=== PATIENT | female | born 1980 | race Caucasian/White ===

== ENCOUNTER 2019-12-06 07:53 | Outpatient (RCR) | payer BC, SELFPAY ==
[2019-12-06 08:00] VITALS: BMI 50.0
== END 2020-03-05 23:59 | disposition home or self-care (01) ==
LOC: ANHDMC 07:53
PROVIDERS: PCP Family Medicine; Visit Provider Obstetrics & Gynecology
DX: O24.410 Gestational diabetes mellitus in pregnancy, diet controlled (principal); Z3A.28 28 weeks gestation of pregnancy; Z71.89 Other specified counseling; Z71.3 Dietary counseling and surveillance
CPT/HCPCS: 97802; G0108

== ENCOUNTER 2019-12-07 09:19 | Outpatient (RCR) | payer BC, SELFPAY ==
[2019-12-08] MEDS: RHO(D) IMMUNE GLOBULIN 300 MCG SYRINGE IM (14:26)
== END 2020-03-06 23:59 | disposition home or self-care (01) ==
LOC: ANHLAB 09:19
PROVIDERS: PCP Family Medicine; Visit Provider Obstetrics & Gynecology
DX: Z29.13 Encounter for prophylactic Rho(D) immune globulin (principal); O36.0990 Maternal care for other rhesus isoimmunization, unspecified trimester, not applicable or unspecified; Z3A.00 Weeks of gestation of pregnancy not specified
CPT/HCPCS: 36415; 90384; 96372; J2790

== ENCOUNTER 2020-02-08 13:25 | Outpatient (RCR) | payer BC, SELFPAY ==
[2019-12-21 10:11] VITALS: BP 149/80
[2019-12-28 09:52] VITALS: BP 114/55; PULSE 68
[2020-01-02 11:25] VITALS: BP 113/79; PULSE 71
[2020-01-11 13:21] VITALS: BP 127/73; PULSE 78
[2020-01-18 14:23] VITALS: BP 136/74; PULSE 77
[2020-01-25 13:48] VITALS: BP 126/65; PULSE 72
[2020-02-01 15:25] VITALS: BP 132/74; PULSE 73
[2020-02-08 13:53] VITALS: BP 141/67; PULSE 79
== END 2020-02-14 09:52 | disposition home or self-care (01) ==
LOC: ANHOBOP 13:25
PROVIDERS: PCP Family Medicine; Visit Provider Obstetrics & Gynecology
DX: O16.3 Unspecified maternal hypertension, third trimester (principal); O24.419 Gestational diabetes mellitus in pregnancy, unspecified control; Z3A.30 30 weeks gestation of pregnancy; Z3A.31 31 weeks gestation of pregnancy; Z3A.32 32 weeks gestation of pregnancy; Z3A.33 33 weeks gestation of pregnancy; Z3A.34 34 weeks gestation of pregnancy; Z3A.35 35 weeks gestation of pregnancy; Z3A.36 36 weeks gestation of pregnancy; Z3A.37 37 weeks gestation of pregnancy
CPT/HCPCS: 59025

== ENCOUNTER 2020-02-11 11:24 | Outpatient (CLI) | payer BC, SELFPAY ==
[2020-02-11 12:27] LABS: Hematocrit 33.7 % (37.0-47.0); Hemoglobin 11.3 g/dL (12.0-15.0); Mean Corpuscular HGB Conc 33.5 g/dl (32-36); Mean Corpuscular Hemoglobin 28.7 pg (26-34); Mean Corpuscular Volume 85.5 fl (80-100); Mean Platelet Volume 10.5 fl (7.4-10.4); Platelet Count Result 223 k/mm3 (150-375); Red Blood Count 3.94 M/mm3 (4.2-5.4); Red Cell Distribution Width 15.6 % (11.5-14.5); White Blood Count 8.4 K/mm3 (4.5-10.0)
[2020-02-13 07:29] LABS: Rapid Plasma Reagin Non-Reactive (NonReactive)
== END 2020-02-11 11:25 | disposition home or self-care (01) ==
PROVIDERS: PCP Family Medicine; Visit Provider Obstetrics & Gynecology
DX: Z01.818 Encounter for other preprocedural examination (principal)
CPT/HCPCS: 36415; 85027; 86592; 86850; 86900; 86901

== ENCOUNTER 2020-02-13 05:20 | Inpatient (IN) | payer BC, SELFPAY ==
--- NOTE | 2020-01-25 12:54 | PC.NURSE ---
PATIENT STATES SHE IS A REPEAT C/S WITH TUBAL LIGATION. PATIENT STATES DR SOFIE SANTIAGO HAS NOT SCHEDULE THE C/S YET. PATIENT INSTRUCTED SHE WILL NEED TO BE IN OB 2 HOURS BEFORE SURGERY AND NOTHING BY MOUTH AT MIDNIGHT THE NIGHT BEFORE SURGERY.PATIENT VERBALIZED HER UNDERSTANDING. PATIENT GIVEN REQUISITION FOR LAB DRAW
--- NOTE | 2020-02-08 13:28 | PM.IMHP ---
H&P: HPI History of Present Illness Chief complaint: PREIN, high blood pressure Narrative: Laurel Hart is a 39 year old female 001 whose last menstrual period was 05/09/2019, EDC is 02/24/2020, confirmed by 6 week ultrasound presents at 38 and half weeks gestation for repeat section. . Her is complicated by chronic hypertension on labetalol 100 mg twice a day. Serial nonstress tests have been good. She also had an abnormal diabetic screen that was followed with serial sugars which have been normal. She is positive for group B strep Review of Systems Review of Systems: All systems reviewed & are unremarkable except as noted in HPI and below PMFSH Family History Family History Father Congestive heart failure Hypertension Mother Liver cirrhosis secondary to HEART Fatty liver Diabetes mellitus Grandparent Abdominal aortic aneurysm Social History Social History Substance use: never Spiritual care concerns: No Meds Home Medications and Allergies Home Medications Medication Instructions Recorded Confirmed Type PNV cmb#95-ferrous fumarate-FA 1 tablet PO DAILY 01/25/20 02/01/20 History [] cholecalciferol (vitamin D3) 125 mcg PO DAILY 01/25/20 02/01/20 History [Vitamin D3] docusate sodium [Colace] 100 mg PO BID 01/25/20 02/01/20 History folic acid 0.4 mg PO DAILY 01/25/20 02/01/20 History labetalol 200 mg PO Q12H 01/25/20 02/01/20 History Allergies Allergy/AdvReac Type Severity Reaction Status Date / Time nifedipine Allergy Mild Hives / Verified 01/25/20 12:33 Red Face nisoldipine Allergy Unknown flushed Verified 01/25/20 12:33 /sweating/burning Exam Const: General: no acute distress Eyes: General: appearance normal, both eyes and all related structures Neck: Neck: supple and no JVD Thyroid: thyroid normal Resp: Effort & Inspection: normal respiratory effort Auscultation: clear to auscultation bilaterally Cardio: Rate: regular rate Rhythm: regular rhythm GI: Inspection: normal to inspection ( obese abdomen) : General: Yes bladder normal to palpation External Female Exam: normal external appearance Speculum Exam - Vagina: normal vaginal discharge and No vaginal bleeding Speculum Exam - Cervix: nontender Bimanual exam- vagina & uterus: bladder normal to palpation and No Cervical tenderness present OB/external & speculum: No vaginal bleeding Skin: General skin exam: no rashes or lesions noted Extrem: General: normal to inspection and no edema Psych: Mental Status: mental status grossly normal Affect: normal affect Assessment and Plan Additional Plan impression: 38 and half weeks / chronic hypertension/ previous section / group B strep positive/ obesity / gestational diabetes controlled Plan: Repeat low-transverse section
[2020-02-13] VITALS (69 sets, daily range): BP systolic 81–152; BP diastolic 38–84; PULSE 58–95; RESP 16–23; TEMP 36.3–37.2; O2SAT 96–100; BMI 51.2
[2020-02-13] MEDS: LACTATED RINGERS 1,000 ML 125 ML IV CONT ×2 (05:52→06:59)
--- NOTE | 2020-02-13 06:22 | LDADM ---
This patient, Laurel Hart, was admitted to Labor/Delivery/Recovery 120 on 02/13/20 at 05:20. Plans for labor, pain management and were discussed with patient. Patient/family oriented to hospital policies and general routines including ID bracelet, bed and alarms, visiting hours, pain management, procedures, bathroom and other care routines, personal items, smoking policy, room service/diet and guest tray routines, security routines, and visiting hours. Patient/Family are encouraged to report perceived risks to care and to ask questions if they do not understand what they are told or what they should do. See OBIX for further documentation.
--- NOTE | 2020-02-13 06:28 | WPDHPUPDATE1 ---
History and Physical Update Update Date/Time: 02/13/20 06:28 History and Physical has been reviewed, including an updated exam of the patient. There are NO changes in the patient's condition. Risks, benefits, and alternatives have been discussed and questions answered. Patient agrees to proceed with procedure.
--- NOTE | 2020-02-13 07:13 | P.PNAN_ITS ---
Anes - Initial Pre Proc Eval Procedure: Operation Date: 02/13/20 07:30 Proposed Procedures p Repeat Section - Checo Armas MD Date/Time: 02/13/20 07:13 Surgeon: Checo Armas MD Pre Op Diagnosis: c/s Patient Data Age: 39 Gender: F Height: 5 ft 3 in Weight: 131.2 kg Last Vital Signs Temp 37.1 C 02/13/20 06:37 Pulse 78 02/13/20 06:12 BP 134/61 02/13/20 06:12 Allergies Allergy/AdvReac Type Severity Reaction Status Date / Time nifedipine Allergy Mild Hives / Verified 01/25/20 12:33 Red Face nisoldipine Allergy Unknown flushed Verified 01/25/20 12:33 /sweating/burning Home Medications Medication Instructions Recorded Confirmed Type PNV cmb#95-ferrous fumarate-FA 1 tablet PO DAILY 01/25/20 02/01/20 History [] cholecalciferol (vitamin D3) 125 mcg PO DAILY 01/25/20 02/01/20 History [Vitamin D3] docusate sodium [Colace] 100 mg PO BID 01/25/20 02/01/20 History folic acid 0.4 mg PO DAILY 01/25/20 02/01/20 History labetalol 200 mg PO Q12H 01/25/20 02/01/20 History hydrocodone-acetaminophen [[place]] 1 tablet PO Q4H PRN #30 tablet 02/13/20 Rx Patient hx anesthesia problems: none Family hx anesthesia problems: none PMFSH Past Medical History Medical History Diabetes Hypertension Family History Family History Father Congestive heart failure Hypertension Mother Liver cirrhosis secondary to HEART Fatty liver Diabetes mellitus Grandparent Abdominal aortic aneurysm Social History Social History Smoking status: Never smoker Second hand tobacco smoke exposure: No Substance use: never Spiritual care concerns: No Anes - Eval Final PreProcedure Day of Procedure 02/13/20 07:13 Patient weight: super morbidly obese Heart: regular rate and rhythm Lungs: clear to auscultation Airway: Mallampati scale class II Neurological: alert and oriented Last oral intake: >/= 8 hours ASA classification: III Emergent: no Anesthetic plan: proceed Anesthesia type and monitoring: regional spinal and standard monitoring Informed Consent: The patient's anesthetic plan and its attendant risks and benefits were discussed with the patient/family/POA. Questions were solicited and answers provided to the satisfaction of the patient/family/POA.
[2020-02-13] MEDS: ceFAZolin 3 GM/D5W 100 ML 100 ML IVPB (07:15)
--- NOTE | 2020-02-13 08:29 | PM.PROC ---
Procedure Note - Detailed Date of procedure: 02/13/20 Pre-op diagnosis: c/s Surgeon: Checo Armas MD Postop diagnosis: Term /previous section Procedure: Repeat low-transverse section EBL: 465cc Anesthesia: Epidural Findings: Male infant 6 lb 6 oz Apgars 8 and 9 at 1 and 5 minutes respectively. The baby was lying transverse and high. There were multiple adhesions Complications: None Description of procedure: The patient was prepped and draped in the normal sterile fashion placed in supine position. Under excellent epidural anesthesia the abdomen was entered in a Pfannenstiel fashion progress through layers to the fascia. Fascia was incised in an upward outward fashion bilaterally. The underlying muscles sharply dissected. Parietal peritoneum was elevated Kimberly clamps and entered by sharp dissection. There were multiple adhesions and the all from omentum and this was sharply dissected. A bladder blade was placed. A bladder flap was formed. The bladder blade returned. A low transverse incision made. And the head delivered in the PALOMA position after some difficulty. The cord was clamped x2 and cut. passed off the table given Apgars of 8 [id number]. Cord blood was drawn. Placenta was then delivered intact manually. The uterus delivered from the abdomen and wrapped in a moist towel. The lower uterine segment was closed with continuous running locking 0 Vicryl from lateral edge to lateral edge. This was followed by a 2nd imbricating running locking 0 Vicryl from lateral edge to lateral edge. Hemostasis was assured. Ovaries and tubes appeared within normal limits. The uterus returned to the abdomen. The hysterotomy incision inspected 1 last time and noted to be hemostatic. The laps were removed and accounted for. The fascia closed with continuous running 0 Vicryl from lateral edge to midline bilaterally. Irrigation subcutaneous layer. The skin closed with 4 O Monocryl and glue. All sponge, needle, instrument counts were correct. There were no immediate complications
[2020-02-13] MEDS: OXYTOCIN 30 UNITS/NS 500 ML 30 UNITS/500 ML BAG 125 UNITS IV CONT (10:19)
[2020-02-13] MEDS: MORPHINE SULFATE 2 MG/ML INJ 3 MG IV PUSH (10:23)
[2020-02-13] MEDS: IBUPROFEN 600 MG TABLET PO (18:50)
[2020-02-13] MEDS: LABETALOL HCL 100 MG TABLET 200 MG PO (20:36)
[2020-02-13] MEDS: NALBUPHINE HCL 10 MG/ML AMPUL 2 MG IV PUSH (23:00)
[2020-02-14] VITALS (7 sets, daily range): BP systolic 129–153; BP diastolic 63–90; PULSE 18–86; RESP 16–98; TEMP 36.1–37; O2SAT 77–100
[2020-02-14 05:06] LABS: Basophils Percent Auto 0.4 % (0.2-1.2); Eosinophils Absolute Auto 0.2 K/mm3 (0-0.3); Eosinophils Percent Auto 2.6 % (0-4.4); Hematocrit 32.6 % (37.0-47.0); Hemoglobin 10.7 g/dL (12.0-15.0); Immature Granulocyte Absolute 0.05 K/mm3 (0.00-0.031); Immature Granulocyte Percent A 0.6 % (0-0.5); Lymphocytes Percent Auto 17.8 % (18.3-44.2); Mean Corpuscular HGB Conc 32.8 g/dl (32-36); Mean Corpuscular Hemoglobin 28.1 pg (26-34); Mean Corpuscular Volume 85.6 fl (80-100); Mean Platelet Volume 10.4 fl (7.4-10.4); Monocytes Absolute Auto 0.6 K/mm3 (0.1-0.6); Monocytes Percent Auto 6.5 % (2.6-8.5); Neutrophils Absolute Auto 6.1 K/mm3 (1.3-6.7); Neutrophils Percent Auto 72.1 % (45.5-73.1); Platelet Count Result 179 k/mm3 (150-375); Red Blood Count 3.81 M/mm3 (4.2-5.4); Red Cell Distribution Width 15.9 % (11.5-14.5); White Blood Count 8.4 K/mm3 (4.5-10.0)
--- NOTE | 2020-02-14 06:42 | PM.OBPNVD ---
OB - PN: Subj Subjective Date/time seen: 02/14/20 06:42 Patient comments: no complaints and pain well controlled baby status: doing well and nursing well OB - PN: Obj Data Labs CBC & Chem 7: 02/14/20 04:17 Labs: Laboratory Results - last 24 hr 02/14/20 02/14/20 04:17 04:17 WBC 8.4 RBC 3.81 L Hgb 10.7 L Hct 32.6 L MCV 85.6 MCH 28.1 MCHC 32.8 RDW 15.9 H Plt Count 179 MPV 10.4 Immature Gran % (Auto) 0.6 H Neut % (Auto) 72.1 Lymph % (Auto) 17.8 L Harper % (Auto) 6.5 Eos % (Auto) 2.6 Baso % (Auto) 0.4 Lymph # (Auto) 1.50 Harper # (Auto) 0.6 Eos # (Auto) 0.2 Baso # (Auto) 0.0 Abs Immat Gran (auto) 0.05 H Absolute Neuts (auto) 6.1 Absolute Nucleated RBC 0.0 Nucleated RBC % 0.0 Blood Type O Negative OB - PN A/P Plan day: 1 Plan: routine care Comments: circ son Time Spent With Patient Time: Total time spent is greater than 50% in coordination of care (as documented) at patient's floor/unit and/or counseling patient: Time with patient: less than 15 minutes Review of Systems Review of Systems: All systems reviewed & are unremarkable except as noted in HPI and below Exam Const: General: no acute distress Eyes: General: appearance normal, both eyes and all related structures Neck: Neck: supple and no JVD Thyroid: thyroid normal Resp: Effort & Inspection: normal respiratory effort Auscultation: clear to auscultation bilaterally Cardio: Rate: regular rate Rhythm: regular rhythm GI: Inspection: normal to inspection and incision (cdi) Percussion: Yes normal to percussion and Yes other (fundus firm below umbilicus) : General: Yes bladder normal to palpation External Female Exam: normal external appearance Speculum Exam - Vagina: normal vaginal discharge and No vaginal bleeding Speculum Exam - Cervix: nontender Bimanual exam- vagina & uterus: bladder normal to palpation and No Cervical tenderness present OB/external & speculum: No vaginal bleeding Skin: General skin exam: no rashes or lesions noted Extrem: General: normal to inspection and no edema Psych: Mental Status: mental status grossly normal Affect: normal affect
[2020-02-14] MEDS: IBUPROFEN 600 MG TABLET PO ×2 (08:26→15:54)
[2020-02-14] MEDS: MULTIVIT/MIN/PREN/FOL AC/IRON TABLET 1 TAB PO (08:27)
[2020-02-14] MEDS: DOCUSATE SODIUM 100 MG CAPSULE PO (08:27)
[2020-02-14] MEDS: LABETALOL HCL 100 MG TABLET 200 MG PO ×2 (08:27→21:56)
--- NOTE | 2020-02-14 08:46 | WPDANLDPN2 ---
Anes-Prog Note L&D Date/Time: 02/14/20 08:46 Comfortable throughout: section Neuraxial method: spinal Epidural/Spinal procedure site: clean & non-tender Neuro status: Neuro function grossly intact. Cardiovascular status: normal Respiratory status: normal Airway patency: baseline Mental status: baseline Post-Op hydration status: normal Vital Signs: Last Vital Signs Temp 36.1 C L 02/14/20 04:00 Pulse 86 02/14/20 08:27 Resp 16 02/14/20 08:00 BP 129/67 02/14/20 04:00 Pulse Ox 98 02/14/20 08:00 I/O: Intake & Output 02/13/20 02/14/20 02/14/20 23:59 07:59 15:59 Intake Total 500 Output Total 600 Balance -100 Patient feedback: Patient satisfied with anesthetic care.
--- NOTE | 2020-02-14 08:46 | WPDANLDNPN2 ---
Anes-Prog Note L&D-Neuraxial Date/Time: 02/14/20 08:46 Neuraxial medications: intrathecal PF morphine Opiod-related complaints: none Patient feedback: Patient satisfied with post-operative pain management.
[2020-02-14] MEDS: RHO(D) IMMUNE GLOBULIN 300 MCG SYRINGE IM (14:47)
[2020-02-15 04:00] VITALS: BP 130/82; PULSE 76; RESP 18; TEMP 36.5; O2SAT 98
--- NOTE | 2020-02-15 07:00 | PM.DS ---
DS: Diagnosis Admitting Diagnosis Admitting Diagnosis: term DS: Summary Time Spent with Patient Time attestation: Total time spent providing and/or coordinating discharge services: Exam Const: General: no acute distress Eyes: General: appearance normal, both eyes and all related structures Neck: Neck: supple and no JVD Thyroid: thyroid normal Resp: Effort & Inspection: normal respiratory effort Auscultation: clear to auscultation bilaterally Cardio: Rate: regular rate Rhythm: regular rhythm GI: Inspection: non-distended GI Palp: Yes Soft to palpation, No Tenderness to palpation present (GI) and No Guarding due to palpation present (GI) Auscultation: normal bowel sounds : General: Yes bladder normal to palpation External Female Exam: normal external appearance Speculum Exam - Vagina: normal vaginal discharge and No vaginal bleeding Speculum Exam - Cervix: nontender Bimanual exam- vagina & uterus: bladder normal to palpation and No Cervical tenderness present OB/external & speculum: No vaginal bleeding Skin: General skin exam: no rashes or lesions noted Extrem: General: normal to inspection and no edema Psych: Mental Status: mental status grossly normal Affect: normal affect DS: Data Data Completed and Pending Labs on day of discharge: Labs from last 24 hours 02/14/20 04:17 Blood Type O Negative Antibody Screen Negative Screen Negative Baby's Blood Type O pos Baby's TYRA Negative Doses of RhIg Required 1 Discharge Plan Discharge Attending physician on discharge: Checo Armas Discharging Clinician: Checo Armas Patient Disposition: Home, Self-Care Activity: may shower, no straining, may drive after 2 weeks and pelvic rest Diet: heart healthy Wound Care Instructions: follow printed instructions Patient Instructions: Antibiotic Form Stand Alone Forms: General Discharge Information Follow-up/Referrals: Checo Armas MD [Physician] - Discharge Medications: New hydrocodone-acetaminophen [[place]] 5-325 mg tablet 1 tablet PO Q4H PRN (Reason: pain) Qty: 30 RF: 0 Continued labetalol 200 mg Tablet 200 mg PO Q12H RF: 0 folic acid 400 mcg Tablet 0.4 mg PO DAILY RF: 0 docusate sodium [Colace] 100 mg Capsule 100 mg PO BID RF: 0 cholecalciferol (vitamin D3) [Vitamin D3] 125 mcg (5,000 unit) Tablet 125 mcg PO DAILY RF: 0 PNV cmb#95-ferrous fumarate-FA [] 28 mg iron- 800 mcg Tablet 1 tablet PO DAILY RF: 0 Date of admission: 02/13/20 05:20 Primary Care Provider: July Mitchell Admitting Provider: Checo Armas Attending physician on admission: Checo Armas
--- NOTE | 2020-02-15 07:02 | PM.OBPNVD ---
OB - PN: Subj Subjective Date/time seen: 02/15/20 07:02 Patient comments: no complaints and pain well controlled baby status: doing well and nursing well OB - PN: Obj Data Labs CBC & Chem 7: 02/14/20 04:17 Labs: Laboratory Results - last 24 hr 02/14/20 04:17 Blood Type O Negative Antibody Screen Negative Screen Negative Baby's Blood Type O pos Baby's TYRA Negative Doses of RhIg Required 1 OB - PN A/P Plan day: 2 Plan: routine care, discharge home and follow up 6 weeks (4 weeks) Time Spent With Patient Time: Total time spent is greater than 50% in coordination of care (as documented) at patient's floor/unit and/or counseling patient: Time with patient: less than 15 minutes Review of Systems Review of Systems: All systems reviewed & are unremarkable except as noted in HPI and below Exam Const: General: no acute distress Eyes: General: appearance normal, both eyes and all related structures Neck: Neck: supple and no JVD Thyroid: thyroid normal Resp: Effort & Inspection: normal respiratory effort Auscultation: clear to auscultation bilaterally Cardio: Rate: regular rate Rhythm: regular rhythm GI: Inspection: non-distended GI Palp: Yes Soft to palpation, No Tenderness to palpation present (GI) and No Guarding due to palpation present (GI) Auscultation: normal bowel sounds : General: Yes bladder normal to palpation External Female Exam: normal external appearance Speculum Exam - Vagina: normal vaginal discharge and No vaginal bleeding Speculum Exam - Cervix: nontender Bimanual exam- vagina & uterus: bladder normal to palpation and No Cervical tenderness present OB/external & speculum: No vaginal bleeding Skin: General skin exam: no rashes or lesions noted Extrem: General: normal to inspection and no edema Psych: Mental Status: mental status grossly normal Affect: normal affect
[2020-02-15 07:50] VITALS: BP 164/74; PULSE 80; RESP 18; TEMP 36.6; O2SAT 100
[2020-02-15] MEDS: MULTIVIT/MIN/PREN/FOL AC/IRON TABLET 1 TAB PO (09:31)
[2020-02-15] MEDS: DOCUSATE SODIUM 100 MG CAPSULE PO (09:31)
[2020-02-15] MEDS: IBUPROFEN 600 MG TABLET PO (09:32)
[2020-02-15 09:33] VITALS: PULSE 88
[2020-02-15] MEDS: LABETALOL HCL 100 MG TABLET 200 MG PO (09:33)
[2020-02-15 11:10] VITALS: BP 133/68
--- NOTE | 2020-02-15 15:23 | PC.NURSE ---
1235 Mother's discharge papers reviewed with her and her ; papers signed.
[2020-02-16 08:18] VITALS: BP 148/77; PULSE 88; RESP 18; TEMP 36.9
== END 2020-02-15 15:05 | disposition home or self-care (01) | DRG 787 ==
LOC: ANHLDR 06:30 → ANHOB2 11:24
PROVIDERS: Admitting Provider Obstetrics & Gynecology; PCP Family Medicine; Visit Provider Obstetrics & Gynecology
PROC: 10D00Z1 Extraction of Products of Conception, Low, Open Approach (ICD-10-PCS; CPT 59514; principal; 2020-02-13 07:30)
DX: O34.211 Maternal care for low transverse scar from previous cesarean delivery (principal); O10.92 Unspecified pre-existing hypertension complicating childbirth; O13.4 Gestational [pregnancy-induced] hypertension without significant proteinuria, complicating childbirth; Z3A.38 38 weeks gestation of pregnancy; Z37.0 Single live birth; Z23 Encounter for immunization; E66.01 Morbid (severe) obesity due to excess calories; O99.214 Obesity complicating childbirth; O69.81X0 Labor and delivery complicated by cord around neck, without compression, not applicable or unspecified; O32.2XX0 Maternal care for transverse and oblique lie, not applicable or unspecified
CPT/HCPCS: 36415; 85025; 86850; 86900; 86901; 90384; A9270; J0131; J0690; J2270; J2274; J2300; J2405; J2590; J2790; J7120

== ENCOUNTER 2020-09-13 08:17 | Outpatient (CLI) | payer BC, SELFPAY ==
[2020-09-13 08:29] LABS: Basophils Absolute Auto 0.04 K/mm3 (0.00-0.10); Basophils Percent Auto 0.5 % (0.0-1.0); Eosinophils Absolute Auto 0.44 K/mm3 (0.02-0.50); Eosinophils Percent Auto 5.2 % (1.0-6.0); Hematocrit 38.7 % (35.0-49.0); Hemoglobin 12.8 g/dL (12.0-15.0); Immature Granulocyte Absolute 0.04 K/mm3 (0.00-0.00); Immature Granulocyte Percent A 0.5 % (0.0-0.0); Lymphocytes Absolute Auto 2.12 K/mm3 (1.10-4.50); Lymphocytes Percent Auto 25.2 % (18.0-42.0); Mean Corpuscular HGB Conc 33.1 g/dL (32.0-36.0); Mean Corpuscular Hemoglobin 29.5 pg (27.0-31.0); Mean Corpuscular Volume 89.2 fL (78.0-102.0); Mean Platelet Volume 9.7 fl (9.2-11.8); Monocytes Absolute Auto 0.42 K/mm3 (0.10-0.90); Neutrophils Absolute Auto 5.4 K/mm3 (1.7-7.2); Neutrophils Percent Auto 63.6 % (50.0-70.0); Platelet Count Result 255 K/mm3 (150-420); Red Blood Count 4.34 M/mm3 (4.20-5.40); Red Cell Distribution Width 14.6 % (11.6-14.4); White Blood Count 8.4 K/mm3 (4.8-10.8)
[2020-09-13 09:50] LABS: Alanine Aminotransferase 21 U/L (14-59); Albumin Level 3.6 g/dL (3.4-5.0); Alkaline Phosphatase 118 U/L (46-116); Anion Gap 9 mmol/L (8-16); Aspartate Amino Transferase 15 U/L (15-37); Bilirubin,Total 0.6 mg/dL (0.00-1.00); Blood Urea Nitrogen 12 mg/dL (7-18); Calcium 9.2 mg/dL (8.5-10.1); Carbon Dioxide 28 mmol/L (21-32); Chloride 103 mmol/L (98-108); Cholesterol 236 mg/dL (0-200); Estimated Glomerular Filt Rate > 60; Ferritin 44 ng/mL (8-252); Glucose 81 mg/dL (70-99); HDL Direct 58 mg/dL (40-60); LDL Cholesterol Calculated 139 mg/dL (<130); Osmolality Calculated 288 mOsm/kg (285-295); Potassium 4.5 mmol/L (3.5-5.1); Sodium 140 mmol/L (136-145); Total Protein 7.4 g/dL (6.4-8.2); Triglycerides 193 mg/dL (0-150)
== END 2020-09-13 08:18 | disposition home or self-care (01) ==
LOC: CHSLAB 08:20
PROVIDERS: PCP Family Medicine; Visit Provider Family Medicine
DX: K76.0 Fatty (change of) liver, not elsewhere classified (principal); I10 Essential (primary) hypertension; E66.01 Morbid (severe) obesity due to excess calories; E28.2 Polycystic ovarian syndrome
CPT/HCPCS: 36415; 80053; 80061; 82728; 83036; 84443; 85025

== ENCOUNTER → 2020-10-30 11:38 | Outpatient (CLI) | payer BC, SELFPAY ==
--- NOTE | ~2020-10-30 | CT_ITS ---
EXAMINATION: CT abdomen pelvis w con DATE: 10/30/2020 11:58 INDICATION: Low abdominal pain and erythema. TECHNIQUE: Computed tomography (CT) of the abdomen and pelvis was performed with 100 mL Omnipaque 350 intravenous contrast. Automated exposure control and iterative reconstruction technique were employe d. The dose-length product was 1082.52 mGy-cm. COMPARISON: Ultrasound 02/13/2016 FINDINGS: The visualized portions of the lung bases demonstrate mild atelectasis. There is an 8 mm no dule in left lower lobe. There is a trace left pleural effusion. The heart size is normal. No pericar dial effusion. The liver, gallbladder, pancreas, adrenal glands, and kidneys are normal. There is mil d splenomegaly measuring 15.6 cm, likely secondary to obesity. There are no dilated loops of bowel. T he appendix is normal. There is an infraumbilical ventral hernia containing nonobstructed small bowel . There is subcutaneous fat stranding overlying the hernia, consistent with inflammation. There are n o pathologically enlarged lymph nodes. There is no free intraperitoneal fluid. There is a varicose ve in in anterior left thigh. There is mild thoracolumbar spondylosis. IMPRESSION: 1. Infraumbilical ventral hernia containing nonobstructed small bowel with inflammation of the subcut aneous fat overlying the hernia. 2. 8 mm pulmonary nodule, which is indeterminate for malignancy. Noncontrast chest CT is recommended in 3 months. Reviewed, dictated and finalized at location B. [facility] [employer] [employer] IMPRESSION: 1. Infraumbilical ventral hernia containing nonobstructed small bowel with infl ammation of the subcutaneous fat overlying the hernia. 2. 8 mm pulmonary nodule, which is indeterminate for malignancy. Noncontrast ch est CT is recommended in 3 months.
[2020-10-30 11:53] LABS: Estimated Glomerular Filt Rate > 60
== END ==
PROVIDERS: PCP Family Medicine; Visit Provider Physician Assistant
DX: R10.9 Unspecified abdominal pain (principal); R91.1 Solitary pulmonary nodule; J98.11 Atelectasis; K43.9 Ventral hernia without obstruction or gangrene; M47.815 Spondylosis without myelopathy or radiculopathy, thoracolumbar region; I83.92 Asymptomatic varicose veins of left lower extremity
CPT/HCPCS: 74177; Q9967